=== PATIENT | female | born 1940 | race Caucasian/White ===

== ENCOUNTER 2025-01-02 07:06 | Day surgery (SDC) | payer MEDICARE, MEDICAID ==
[~2025-01-02 07:06] MED LIST: Lactated Ringers 1,000 ML IV PRN; Sodium Chloride 0.9% 10 ML Syringe FLUSH PRN
[2025-01-02] MEDS ORDERED: fentaNYL 100 MCG/2 ML SDV IV ONE (07:07)
[2025-01-02] MEDS ORDERED: Midazolam 1 MG/ML 2 ML SDV IV ONE (07:07)
[2025-01-02] MEDS: acetaZOLAMIDE 500 MG Cap.ER PO ONE (09:25)
== END 2025-01-02 09:48 | disposition home or self-care (01) ==
LOC: FB.SDS 07:06
PROVIDERS: ATTEND Ophthalmology
DX: E11.36 Type 2 diabetes mellitus with diabetic cataract (principal); H25.813 Combined forms of age-related cataract, bilateral; I10 Essential (primary) hypertension; Z79.84 Long term (current) use of oral hypoglycemic drugs; Z79.82 Long term (current) use of aspirin; Z79.899 Other long term (current) drug therapy
CPT/HCPCS: 00142; 82947; 99100; A9270-GY; J2250; J3010; V2632

== ENCOUNTER → 2025-01-16 | Day surgery (SDC) | payer MEDICARE, MEDICAID ==
[~2025-01-16] MED LIST changes: -Lactated Ringers 1,000 ML IV PRN; +Midazolam 1 MG/ML 2 ML SDV IV ONE; +fentaNYL 100 MCG/2 ML SDV IV ONE
[2025-01-16] MEDS: Lactated Ringers 1,000 ML IV PRN (09:02)
[2025-01-16] MEDS: acetaZOLAMIDE 500 MG Cap.ER PO ONE (10:36)
== END ==
LOC: FB.SDS 08:35
PROVIDERS: ATTEND Ophthalmology
DX: E11.36 Type 2 diabetes mellitus with diabetic cataract (principal); H26.9 Unspecified cataract; I10 Essential (primary) hypertension; Z79.84 Long term (current) use of oral hypoglycemic drugs; Z79.82 Long term (current) use of aspirin; Z79.899 Other long term (current) drug therapy
CPT/HCPCS: 00142; 99100; A9270-GY; J2250; J3010; J7120; V2632